=== PATIENT | female | born 1990 | race African-American/Black ===

== ENCOUNTER 2020-03-12 09:09 | Emergency (ER) | payer SELFPAY | END 2020-03-12 09:50 | disposition home or self-care (01) | LOC: ERS 09:09 | DX: H10.9 Unspecified conjunctivitis (principal); I10 Essential (primary) hypertension; E11.9 Type 2 diabetes mellitus without complications; Z79.84 Long term (current) use of oral hypoglycemic drugs; Z79.899 Other long term (current) drug therapy | CPT/HCPCS: 99283 ==

== ENCOUNTER 2022-06-29 09:19 | Outpatient (CLI) | payer BC, OTHER | END 2022-06-29 09:20 | disposition home or self-care (01) | LOC: BICULT 09:19 | PROVIDERS: ATTEND Family Medicine | DX: O09.892 Supervision of other high risk pregnancies, second trimester (principal); Z3A.21 21 weeks gestation of pregnancy | CPT/HCPCS: 76805 ==